=== PATIENT | male | born 1985 | race Caucasian/White ===

== ENCOUNTER → 2019-08-10 12:01 | Outpatient (CLI) | payer BC, SELFPAY ==
[2019-08-10 12:52] LABS: Add Manual Diff / Slide Review NO; Basophils Absolute Auto 100 /uL (0-100); Basophils Percent Auto 2.1 % (0-2); Eosinophils Absolute Auto 200 /uL (0-450); Eosinophils Percent Auto 4.2 % (2-4); Hematocrit 45.1 % (41-53); Hemoglobin 15.8 g/dL (13.5-17.5); Lymphocytes Absolute Auto 1500 /uL (1100-4500); Lymphocytes Percent Auto 30.9 % (25-40); Mean Corpuscular Hemoglobin 28.6 PG (26-34); Mean Corpuscular Volume 81.6 fL (80-100); Monocytes Absolute Auto 400 /uL (0-900); Monocytes Percent Auto 7.3 % (3-14); Neutrophils Absolute Auto 2800 /uL (1500-7000); Neutrophils Percent Auto 55.5 % (50-75); Platelet Count 230 X10^3/uL (150-400); Red Blood Cell Count 5.52 X10^6/uL (4.5-5.9); Red Cell Distribution Width 12.8 % (11.6-14.8)
[2019-08-10 13:03] LABS: Hemoglobin A1C% w Est Avg Glu 4.8 % (4.0-6.0)
[2019-08-10 13:08] LABS: Alanine Aminotransferase 24 IU/L (<50); Albumin 4.9 g/dL (3.5-5.0); Albumin Globulin Ratio 1.8 (1.0-2.8); Alkaline Phosphatase 66 U/L (38-126); Aspartate Aminotransferase 25 IU/L (17-59); Bilirubin Total 0.8 mg/dL (0.2-1.3); Blood Urea Nitrogen 10 mg/dL (9-20); Calcium 9.7 mg/dL (8.4-10.2); Carbon Dioxide 30 mmol/L (22-32); Chloride 100 mmol/L (98-107); Cholesterol 166 mg/dL (140-199); Estimated Glomerular Filt Rate > 60.0 mL/min (>60); Globulin 2.7 g/dL (1.7-4.1); Glucose 94 mg/dL (70-100); HDL Cholesterol 38 mg/dL (40-60); HEMOLYSIS < 15 (0-50); LDL Cholesterol Calculated 90 mg/dL (<100); Sodium 140 mmol/L (137-145); Total Protein 7.6 g/dL (6.3-8.2); Triglycerides 188 mg/dL (35-150)
[2019-08-10 14:10] LABS: TSH w/ Reflex to FT4 1.74 uIU/mL (0.47-4.68)
== END ==
PROVIDERS: Visit Provider Family Medicine
DX: Z00.00 Encounter for general adult medical examination without abnormal findings (principal); Z76.89 Persons encountering health services in other specified circumstances
CPT/HCPCS: 36415; 80053; 80061; 83036; 84443; 85025

== ENCOUNTER 2020-01-07 15:53 | Emergency (ER) | payer BC, SELFPAY ==
[2020-01-07 16:05] VITALS: PULSE 107; RESP 16; O2SAT 99; BMI 21.5
--- NOTE | 2020-01-07 16:07 | DI.CT.S_ITS ---
PROCEDURE: CT HEAD/BRAIN WO CON INDICATIONS: worsening headache w/ vision changes TECHNIQUE: Noncontrast 4.5 mm thick angled axial sections acquired from the foramen magnum to the vertex, with coronal and sagittal reformats. For radiation dose reduction, the following was used: automated exposure control, adjustment of mA and/or kV according to patient size. COMPARISON: None. FINDINGS: Image quality: Excellent. CSF spaces: Basal cisterns are patent. No extra-axial fluid collections. Ventricles are normal in size and shape. Brain: No midline shift. No intracranial masses or hemorrhage. Malone-white matter interface is normal. Incidentally noted cortical draining vein seen within the right frontal lobe image 106/6, anatomic variant Skull and face: Calvarium and visualized facial bones are intact, without suspicious lesions. Sinuses: Visualized sinuses and mastoids are clear. IMPRESSION: No acute intracranial process. Dictated by: Demetri Laureano M.D. on 01/07/2020 at 16:45 Approved by: Demetri Laureano M.D. on 01/07/2020 at 16:58
[2020-01-07 17:45] VITALS: BP 141/81; TEMP 36.6
--- NOTE | 2020-01-07 20:02 | PC.NURSE ---
pt c/o headache he has had for the past four years intermittently. pt seen by ent for and had scope done of upper airway. pain goes into his ear jaw and throat sometime. today a little pain in jaw. pt reports he has never had a ct done.
[2020-01-07 20:22] VITALS: BP 143/85; PULSE 104; O2SAT 99
--- NOTE | 2020-01-07 21:01 | ED.HA ---
HPI - Headache <AVNI DiazBC - Last Filed: 01/07/20 21:09> General Chief Complaint: Headache Stated Complaint: presssure in back of his head x4 yeas Time Seen by Provider: 01/07/20 19:39 Source: patient and family Mode of arrival: Ambulatory Limitations: no limitations History of Present Illness HPI Narrative: The patient is a 34-year-old male nonsmoker with history of anxiety and vertigo who presents with a chief complaint of a headache that has been on the back of his head on and off the past 4 years. Today he states he felt ?cloudy and like he had short-term memory loss. He states that he has pain in the back was head extending up over from the base of his skull. He also has pain at his bilateral jaws with clicking. He states that he has had multiple evaluations by multiple providers including chiropractors in dentist and he was started on acid reflux medication recently. He states that this did not help. He denies any thunderclap sensation, lightheadedness or dizziness. He has become he is accompanied by his . He states like both of his ears are full. He states that both of his jaws click and that his jaw opens to 1 side sometimes. He does admit to stress and anxiety. Related Data Home Medications Medication Instructions Recorded Confirmed dextroamphetamine-amphetamine 10 See Rx Instructions PO BID 08/09/19 08/09/19 mg tablet Previous Rx's Medication Instructions Recorded ranitidine HCl 150 mg capsule 150 mg PO BID #180 cap 08/09/19 cyclobenzaprine 10 mg PO TID PRN #20 tab 01/07/20 ketorolac 10 mg PO TID PRN #14 tab 01/07/20 Allergies Allergy/AdvReac Type Severity Reaction Status Date / Time No Known Drug Allergies Allergy Verified 01/07/20 16:05 Review of Systems <DEVIN Diaz - Last Filed: 01/07/20 21:09> Review of Systems Narrative: GENERAL: Denies chills, fatigue, malaise, fever, sweats. HEENT: See HPI RESPIRATORY: Denies dyspnea, cough, wheezing, hemoptysis, sputum. CARDIOVASCULAR: Denies chest pain, palpitations, orthopnea, edema, GASTROINTESTINAL: Denies nausea, vomiting, abdominal pain, diarrhea, constipation, melena. : Denies dysuria, frequency, incontinence, hematuria, urinary retention. MUSCULOSKELETAL: denies weakness, joint pain, or bony pain SKIN: Denies rash, skin lesions, or other NEUROLOGIC: See HPI PSYCHIATRIC: No concerning psychosocial issues. 12 point review of systems is negative except for those stated above Patient History <DEVIN Diaz - Last Filed: 01/07/20 21:09> Medical History Asthma (Acute) Attention deficit disorder (Chronic) Gastritis (Acute ~2017) Hearing deficit (Acute) Otalgia, right ear (Acute) Recurrent sinusitis (Chronic) Vertigo (Chronic) Well adult exam (Acute) Surgical History Skin mole (Resolved) Zearing teeth removed (Resolved) Family History Father GERD (gastroesophageal reflux disease) Mother Obesity Anxiety Sister Anxiety Obesity Sister Anxiety Psoriasis Grandfather Alcoholic Grandmother Cancer Grandmother Dementia History of heart disease Social History Smoking Status: Never smoker alcohol intake: current (20-30 drinks every other month ) substance use type: former substance user (Social marijuana) Smoking Status: Never smoker Exam <DEVIN Diaz - Last Filed: 01/07/20 21:09> Narrative Exam Narrative: GENERAL: This is a well-nourished, well-developed patient, in no acute distress HEAD: Atraumatic. Normocephalic. No temporal or scalp tenderness. EYES: Pupils equal round and reactive. Extraocular motions intact. No scleral icterus. No injection or drainage. ENT: Nose without bleeding, purulent drainage or septal hematoma. Throat without erythema, tonsillar hypertrophy or exudate. Uvula midline. Airway patent. Bilateral TMs pearly malone. Clicking it to palpation of bilateral TMJ. Pain to palpation of bilateral TMJ NECK: Trachea midline. No JVD or lymphadenopathy. Supple, nontender, no meningeal signs. CARDIOVASCULAR: Regular rate and rhythm without murmurs, gallops, or rubs. RESPIRATORY: Clear to auscultation. Breath sounds equal bilaterally. No wheezes, rales, or rhonchi. No cough. No increased respiratory effort. No accessory muscle use. GASTROINTESTINAL: Abdomen soft, non-tender, nondistended. No hepato-splenomegaly, or palpable masses. No guarding. EXTREMITIES: No clubbing, cyanosis, or edema. No joint tenderness, effusion, or edema noted. BACK: Nontender without deformity or crepitance. No flank tenderness. NEURO: AOx3. Stable gait. No gross cranial nerve deficit. Clear speech. Following commands. SKIN: No rash or erythema on visible skin Initial Vital Signs Initial Vital Signs: Vital Signs Pulse Rate 107 H 01/07/20 16:05 Respiratory Rate 16 01/07/20 16:05 Pulse Oximetry 99 01/07/20 16:05 <Erik Pagan DO - Last Filed: 01/08/20 05:40> Initial Vital Signs Initial Vital Signs: Vital Signs Pulse Rate 107 H 01/07/20 16:05 Respiratory Rate 16 01/07/20 16:05 Pulse Oximetry 99 01/07/20 16:05 Scores <DEVIN Diaz - Last Filed: 01/07/20 21:09> GCS Oxford coma scale eye opening: Spontaneous Eagle coma scale verbal response: Orientated Eagle coma scale motor response: Obey commands Oxford coma scale total score: 15 Course <DEVIN Diaz - Last Filed: 01/07/20 21:09> Orders Ordered: ED Orders 01/07/20 16:07 CT head/brain wo con Stat Vital Signs Vital signs: Vital Signs - 8 hr 01/07/20 16:05 01/07/20 17:45 01/07/20 20:22 Temperature 97.9 F Pulse Rate 107 H 104 H Respiratory Rate 16 Blood Pressure [Left Arm] 141/81 H 143/85 H Pulse Oximetry 99 99 <Erik Pagan DO - Last Filed: 01/08/20 05:40> Orders Ordered: ED Orders 01/07/20 16:07 CT head/brain wo con Stat Vital Signs Vital signs: Vital Signs - 8 hr 01/07/20 16:05 01/07/20 17:45 01/07/20 20:22 Temperature 97.9 F Pulse Rate 107 H 104 H Respiratory Rate 16 Blood Pressure [Left Arm] 141/81 H 143/85 H Pulse Oximetry 99 99 MDM - Headache <Berenice Silva, CROWN ATTACHER-BC - Last Filed: 01/07/20 21:09> Imaging Data CT scan - head: Radiologist's Impression: [address] [place] [id number] Scan Report Signed Patient: Mao Hester LMR#: [id number] : 1985Acct:[id number] Age/Sex: 34 / MDate of Service: 01/07/20 Loc: ED Accession Number: [id number] Procedure: CT head/brain wo con Ordering Provider: Salazar Tijerina MD PROCEDURE: CT HEAD/BRAIN WO CON INDICATIONS: worsening headache w/ vision changes TECHNIQUE: Noncontrast 4.5 mm thick angled axial sections acquired from the foramen magnum to the vertex, with coronal and sagittal reformats. For radiation dose reduction, the following was used: automated exposure control, adjustment of mA and/or kV according to patient size. COMPARISON: None. FINDINGS: Image quality: Excellent. CSF spaces: Basal cisterns are patent. No extra-axial fluid collections. Ventricles are normal in size and shape. Brain: No midline shift. No intracranial masses or hemorrhage. Malone-white matter interface is normal. Incidentally noted cortical draining vein seen within the right frontal lobe image 106/6, anatomic variant Skull and face: Calvarium and visualized facial bones are intact, without suspicious lesions. Sinuses: Visualized sinuses and mastoids are clear. IMPRESSION: No acute intracranial process. Dictated by: Demetri Laureano M.D. on 01/07/2020 at 16:45 Approved by: Demetri Laureano M.D. on 01/07/2020 at 16:58 [facility] Narrative Medical decision making narrative: The patient is a 34-year-old male who presented with a chief complaint of headache, foggy feeling and short-term memory loss today. Nursing obtained a head CT given his neurological complaints, which came back negative. He appears well, nontoxic and in no acute distress throughout his stay in the emergency department. His exam is consistent TMJ, he think it is likely contributed to by stress and anxiety. We elected for a trial of anti-inflammatories as well as muscle relaxers. I discussed not injury food, chewing gum etcetera I discussed at length the importance of follow-up with primary care provider as well as a dentist. Overall the patient appears well and nontoxic, neurologically stable with no thunderclap sensation or current neurological changes. Patient has no questions or concerns upon discharge and states understanding return precautions as well as follow-up care. Discharge Plan Departure Patient Disposition: Home Clinical Impression: TMJ (temporomandibular joint disorder) Headache Qualifiers: Headache type: unspecified Headache chronicity pattern: unspecified pattern Intractability: not intractable Qualified Code(s): R51 - Headache Discharge Date/Time: 01/07/20 20:25 Instructions: TMJ Syndrome (Alternative Therapy), DI for Hormonal and Tension Headaches, DI for Temporomandibular Disorder, DI for Headache Activity Restrictions/Additional Instructions: Thank you for trusting us with your care today. As I discussed, your head CT came back with no acute findings. Given the clicking in her jaw as well as symptoms, let us try a combination of muscle relaxers and anti-inflammatories. I have given you a prescription of Toradol. This is an NSAID. Do not combine it with other NSAIDs such as Aleve or ibuprofen. I suggest taking it with some food, as it can irritate your stomach. I sent 2 prescriptions to [facility]. Do not combine the muscle relaxer with anything sedating. Please follow-up with primary care provider in the next few days Please come back to emergency department for any acute concerns such as neurological changes etcetera Prescriptions: New ketorolac 10 mg tablet 10 mg PO TID PRN (Reason: pain) Qty: 14 RF: 0 cyclobenzaprine 10 mg tablet 10 mg PO TID PRN (Reason: muscle spasm) Qty: 20 RF: 0 No Action dextroamphetamine-amphetamine [Adderall] 10 mg tablet See Rx Instructions PO BID RF: 0 ranitidine HCl 150 mg capsule 150 mg PO BID Qty: 180 RF: 1 Referrals: Jori Headley MD [Non-Staff] - <Erik Pagan DO - Last Filed: 01/08/20 05:40> Cosign ED Attending Coskimature Attestation: I was immediately available in the department for consultation. This documentation has been reviewed and I agree with assessment and plan. Supervised by Erik Pagan DO
== END 2020-01-07 20:25 | disposition home or self-care (01) ==
PROVIDERS: Emergency Provider Nurse Practitioner Family
DX: R51 Headache (principal); R41.0 Disorientation, unspecified
CPT/HCPCS: 70450; 99283; 99284

== ENCOUNTER → 2020-02-22 16:06 | Outpatient (CLI) | payer BC, SELFPAY ==
[2020-02-22 16:21] LABS: Bacteria Urine None Seen
[2020-02-22 18:04] LABS: Add Manual Diff / Slide Review NO; Basophils Absolute Auto 100 /uL (0-100); Basophils Percent Auto 1.5 % (0-2); Eosinophils Absolute Auto 200 /uL (0-450); Eosinophils Percent Auto 2.4 % (2-4); Hematocrit 48.3 % (41-53); Hemoglobin 16.9 g/dL (13.5-17.5); Lymphocytes Absolute Auto 1700 /uL (1100-4500); Lymphocytes Percent Auto 22.6 % (25-40); Mean Corpuscular HGB Conc 34.9 % (30-36); Mean Corpuscular Volume 80.2 fL (80-100); Monocytes Absolute Auto 600 /uL (0-900); Monocytes Percent Auto 8.3 % (3-14); Neutrophils Absolute Auto 5000 /uL (1500-7000); Neutrophils Percent Auto 65.2 % (50-75); Platelet Count 259 X10^3/uL (150-400); Red Blood Cell Count 6.02 X10^6/uL (4.5-5.9); Red Cell Distribution Width 13.1 % (11.6-14.8); White Blood Cell Count 7.7 X10^3/uL (4.5-11.0)
[2020-02-22 18:55] LABS: Appearance Urine UA CLEAR; Bilirubin Urine UA 1+ (NEGATIVE); Color Urine UA YELLOW; Glucose Urine UA NEGATIVE (Negative); Ketones Urine UA NEGATIVE (NEGATIVE); Leukocyte Esterase Urine UA NEGATIVE (NEGATIVE); Nitrite Urine UA NEGATIVE (Negative); Occult Blood Urine UA NEGATIVE (Negative); Protein Urine UA TRACE (Negative); Urobilinogen Urine UA 0.2 E.U./dL (0.2); pH Urine UA 5.5 (4.5-8.0)
[2020-02-22 19:12] LABS: Erythrocyte Sedimentation Rate 1 MM/HR (0-15)
[2020-02-22 19:18] LABS: Culture Indicated Urine Cult Not Indicated; Ictotest Urine Negative (Negative); Mucus Urine 1+ (Negative); RBC Urine 0-1/HPF (0-5/HPF); Squamous Epithelial Cell Urine 0-1 /HPF (0-5/HPF); WBC Urine 0-1/HPF (0-5/HPF)
[2020-02-22 19:44] LABS: Alanine Aminotransferase 40 IU/L (<50); Albumin 5.3 g/dL (3.5-5.0); Alkaline Phosphatase 93 U/L (38-126); Aspartate Aminotransferase 32 IU/L (17-59); BUN Creatinine Ratio 13.4 (6-22); Bilirubin Total 1.2 mg/dL (0.2-1.3); Blood Urea Nitrogen 15 mg/dL (9-20); Calcium 10.3 mg/dL (8.4-10.2); Carbon Dioxide 26 mmol/L (22-32); Chloride 100 mmol/L (98-107); Estimated Glomerular Filt Rate > 60.0 mL/min (>60); Globulin 2.7 g/dL (1.7-4.1); Glucose 106 mg/dL (70-100); HEMOLYSIS < 15 (0-50); Potassium 4.4 mmol/L (3.4-5.1); Sodium 139 mmol/L (137-145)
[2020-02-22 19:59] LABS: C-Reactive Protein Quant < 0.5 mg/dL (<1.0)
[2020-02-22 20:10] LABS: TSH w/ Reflex to FT4 1.98 uIU/mL (0.47-4.68)
== END ==
PROVIDERS: PCP Family Medicine; Referring Provider Physician Assistant; Visit Provider Physician Assistant
DX: H04.123 Dry eye syndrome of bilateral lacrimal glands (principal); H92.01 Otalgia, right ear; R68.2 Dry mouth, unspecified
CPT/HCPCS: 36415; 80053; 81001; 84443; 85025; 85651; 86140